=== PATIENT | female | born 1995 | race Two or more races ===

== ENCOUNTER 2023-01-13 08:17 | Outpatient (CLI) | payer OTHER | END 2023-01-13 09:39 | disposition home or self-care (01) | LOC: PRENATAL 08:17 | PROVIDERS: ATTEND Obstetrics & Gynecology Maternal & Fetal Medicine | DX: O35.9XX0 Maternal care for (suspected) fetal abnormality and damage, unspecified, not applicable or unspecified (principal); O35.3XX0 Maternal care for (suspected) damage to fetus from viral disease in mother, not applicable or unspecified; Z3A.23 23 weeks gestation of pregnancy ==

== ENCOUNTER 2023-04-22 14:57 | Outpatient (CLI) | payer OTHER | END 2023-04-22 17:45 | disposition home or self-care (01) | LOC: PRENATAL 14:57 | PROVIDERS: ATTEND Obstetrics & Gynecology Maternal & Fetal Medicine | DX: O26.849 Uterine size-date discrepancy, unspecified trimester (principal); O36.8199 Decreased fetal movements, unspecified trimester, other fetus; O32.9XX0 Maternal care for malpresentation of fetus, unspecified, not applicable or unspecified; O44.00 Complete placenta previa NOS or without hemorrhage, unspecified trimester; Z3A.36 36 weeks gestation of pregnancy ==

== ENCOUNTER 2025-07-11 16:07 | Outpatient (CLI) | payer OTHER ==
[~2025-07-11] VITALS: Ht 167.6 cm; Wt 77.1 kg
[2025-07-11 15:30] VITALS: BP 98/64; O2SAT 100
[2025-07-11 16:40] LABS: BASO % 0.3 % (0.1-1.2); EOS # 0.05 (0.04-0.54); EOS % 0.6 % (0.7-7.0); LYMPH # 1.62 (1.18-3.74); LYMPH % 20.9 % (19.3-53.1); MEAN PLATELET VOLUME 10.00 fl (9.4-12.4); MONO # 0.59 (0.24-0.82); MONO % 7.6 % (4.7-12.5); NEUT # 5.45 (1.56-6.13); NEUT % 70.2 % (34.0-71.1); RED CELL DISTRIBUTION WIDTH 13.6 % (11.6-14.4)
[2025-07-11 17:09] LABS: INR 0.95
[2025-07-11 17:20] LABS: ALT/SGPT 17.0 U/L (12-78); AST/SGOT 16.0 U/L (15-37); BILIRUBIN TOTAL 0.21 mg/dL (0.3-1.2); BUN CREA RATIO 17.0 (7.0-25.0); CREATININE SERUM 0.52 mg/dL (0.55-1.02); GFR 138.46; GLOBULINA 3.3 G/DL (2.4-3.5); GLUCOSE FASTING 90.0 mg/dL (65-100); OSMOLALITY SERUM 278.0 MOSM/KG (275-295)
[2025-07-11] MEDS ORDERED: RINGERS SOLUTION,LACTATED 1,000 ML IV SCH (19:45)
[2025-07-11 21:05] VITALS: BP 93/55; O2SAT 100
[2025-07-11 23:36] VITALS: BP 94/59
[2025-07-12 03:44] VITALS: BP 101/60
[2025-07-12 07:03] VITALS: BP 82/52; O2SAT 98
[2025-07-12 12:02] VITALS: BP 993/59
[2025-07-12 12:15] LABS: BASO % 0.1 % (0.1-1.2); EOS # 0.05 (0.04-0.54); EOS % 0.6 % (0.7-7.0); LYMPH # 1.57 (1.18-3.74); LYMPH % 19.0 % (19.3-53.1); MEAN PLATELET VOLUME 10.00 fl (9.4-12.4); MONO # 0.47 (0.24-0.82); MONO % 5.7 % (4.7-12.5); NEUT # 6.15 (1.56-6.13); NEUT % 74.2 % (34.0-71.1); RED CELL DISTRIBUTION WIDTH 13.4 % (11.6-14.4)
[2025-07-12 14:26] VITALS: BP 93/60
== END 2025-07-12 14:31 | disposition home or self-care (01) ==
LOC: OBS/DEL 16:07
PROVIDERS: Obstetrics & Gynecology; ATTEND Obstetrics & Gynecology Gynecology
DX: O26.893 Other specified pregnancy related conditions, third trimester (principal); R07.9 Chest pain, unspecified; R00.2 Palpitations; Z3A.33 33 weeks gestation of pregnancy

== ENCOUNTER → 2025-07-11 | Emergency (ER) | payer OTHER | END | disposition left against medical advice (07) | LOC: ER 13:34 | DX: C80.1 Malignant (primary) neoplasm, unspecified (principal); C79.89 Secondary malignant neoplasm of other specified sites; N12 Tubulo-interstitial nephritis, not specified as acute or chronic; N13.39 Other hydronephrosis; I11.9 Hypertensive heart disease without heart failure; I25.810 Atherosclerosis of coronary artery bypass graft(s) without angina pectoris; I10 Essential (primary) hypertension; Z85.89 Personal history of malignant neoplasm of other organs and systems ==

== ENCOUNTER 2025-08-15 09:45 | Inpatient (IN) | payer OTHER ==
[~2025-08-15] VITALS: Ht 167.6 cm; Wt 83.5 kg
[2025-08-20] MEDS ORDERED: RINGERS SOLUTION,LACTATED 1,000 ML IV SCH (08:30)
[2025-08-20 08:56] VITALS: BP 105/63
[2025-08-20 09:34] LABS: BASO % 0.1 % (0.1-1.2); EOS # 0.03 (0.04-0.54); EOS % 0.4 % (0.7-7.0); LYMPH # 1.56 (1.18-3.74); LYMPH % 20.1 % (19.3-53.1); MEAN PLATELET VOLUME 9.70 fl (9.4-12.4); MONO # 0.65 (0.24-0.82); MONO % 8.4 % (4.7-12.5); NEUT # 5.45 (1.56-6.13); NEUT % 70.2 % (34.0-71.1)
[2025-08-20] MEDS ORDERED: PRENATAL TABLE1 EAC1 PO (09:41)
[2025-08-20 09:54] LABS: INR < 0.93
[2025-08-20 09:56] LABS: RED CELL DISTRIBUTION WIDTH 17.2 % (11.6-14.4)
[2025-08-20 09:58] LABS: ALT/SGPT 26.0 U/L (12-78); AST/SGOT 21.0 U/L (15-37); BILIRUBIN TOTAL 0.35 mg/dL (0.3-1.2); BUN CREA RATIO 16.0 (7.0-25.0); CREATININE SERUM 0.45 mg/dL (0.55-1.02); GFR 162.51; GLOBULINA 3.4 G/DL (2.4-3.5); GLUCOSE FASTING 74.0 mg/dL (65-100); OSMOLALITY SERUM 278.0 MOSM/KG (275-295)
[2025-08-20] MEDS ORDERED: MISOPROSTOL 25 MCG TABLET VAG ONE ×2 (10:45→20:15)
[2025-08-20 11:40] VITALS: BP 105/61
[2025-08-20 15:11] VITALS: BP 102/55
[2025-08-20] MEDS ORDERED: MISOPROSTOL 25 MCG TABLET ONE (19:42)
[2025-08-20 23:33] VITALS: BP 103/54
[2025-08-21 03:42] VITALS: BP 94/53
[2025-08-21 07:22] VITALS: BP 103/81
[2025-08-21] MEDS ORDERED: OXYTOCIN 20 UNITS/500ML RL PIGGYBAG IV ONE (07:28)
[2025-08-21] MEDS ORDERED: OXYTOCIN 500 ML IV ONE (07:30)
[2025-08-21 11:05] VITALS: BP 99/52
[2025-08-21 17:25] VITALS: BP 109/68
[2025-08-21] MEDS ORDERED: OXYTOCIN 20 UNITS/1000ML RL PIGGYBAG IV ONE (18:27)
[2025-08-21] MEDS ORDERED: LIDOCAINE HCL 1% 10ML VIAL ONE (18:27)
[2025-08-21] MEDS ORDERED: ERYTHROMYCIN BASE OPHT 1GM EACH TUBE OP ONE (18:27)
[2025-08-21] MEDS ORDERED: CHLORHEXIDINE GLUCONATE 120 ML BOTTLE TOP ONE (18:27)
[2025-08-21] MEDS ORDERED: CHLORHEXIDINE GLUCONATE 120 ML BOTTLE TOP SCH (20:45)
[2025-08-21] MEDS ORDERED: OXYTOCIN 1,000 ML IV ONE (20:45)
[2025-08-21] MEDS ORDERED: SENNA/DOCUSATE SODIUM 1 TAB TABLET PO SCH (21:00)
[2025-08-21 22:13] VITALS: BP 105/70
[2025-08-21 23:11] LABS: BASO % 0.3 % (0.1-1.2); EOS # 0.01 (0.04-0.54); EOS % 0.1 % (0.7-7.0); LYMPH # 0.96 (1.18-3.74); LYMPH % 6.6 % (19.3-53.1); MEAN PLATELET VOLUME 10.00 fl (9.4-12.4); MONO # 0.55 (0.24-0.82); MONO % 3.8 % (4.7-12.5); NEUT # 12.84 (1.56-6.13); NEUT % 88.9 % (34.0-71.1); RED CELL DISTRIBUTION WIDTH 17.2 % (11.6-14.4)
[2025-08-22] VITALS: BP 101/65
[2025-08-22] MEDS ORDERED: PNV,CALCIUM 72/IRON/FOLIC ACID 1 TAB TABLET PO SCH (09:00)
[2025-08-22 10:35] VITALS: BP 100/65; O2SAT 100
[2025-08-23] VITALS: BP 91/56
[2025-08-23 08:00] VITALS: BP 93/60
== END 2025-08-23 13:50 | disposition home or self-care (01) | DRG 807 ==
LOC: LDR 08-20 07:52 → OB/GYN 08-20 09:45
PROVIDERS: Obstetrics & Gynecology Gynecology; ADMIT Obstetrics & Gynecology; ATTEND Obstetrics & Gynecology
PROC: 3E0P7VZ Introduction of Hormone into Female Reproductive, Via Natural or Artificial Opening (ICD-10-PCS; 2025-08-20)
PROC: 4A1HXCZ Monitoring of Products of Conception, Cardiac Rate, External Approach (ICD-10-PCS; 2025-08-20)
PROC: 10E0XZZ Delivery of Products of Conception, External Approach (ICD-10-PCS; principal; 2025-08-21)
PROC: 3E033VJ Introduction of Other Hormone into Peripheral Vein, Percutaneous Approach (ICD-10-PCS; 2025-08-21)
DX: O69.81X0 Labor and delivery complicated by cord around neck, without compression, not applicable or unspecified (principal); Z37.0 Single live birth; Z3A.38 38 weeks gestation of pregnancy